=== PATIENT | female | born 1965 | race African-American/Black ===

== ENCOUNTER 2016-11-17 16:38 | Emergency (ER) | payer OTHER ==
[~2016-11-17] VITALS: Ht 162.6 cm; Wt 163.3 kg
--- NOTE | 2016-11-17 16:43 | PHYS DOC ---
Adult General HPI HPI Patient is a 51 year old female presenting to the emergency department via EMS for evaluation of dizziness nausea and not feeling well in the setting of being outside a 90 weather for 3 hours. She says that she was sitting down most the time but after standing up and walking she started getting the symptoms including profuse sweating. She said she felt slightly short of breath but no chest pain vomiting or abdominal pain. Patient says that she started drinking water after she felt the symptoms and EMS arrived to pick her up and she is feeling much better now. She says that she is almost back to baseline except for some generalized weakness. Review of Systems Review of Systems Constitutional: Denies fever or chills [] Eyes: Denies change in visual acuity, redness, or eye pain [] HENT: Denies nasal congestion or sore throat [] Respiratory: Denies cough. + shortness of breath [] Cardiovascular: No additional information not addressed in HPI [] GI: Denies abdominal pain. + nausea. No vomiting, bloody stools or diarrhea [] : Denies dysuria or hematuria [] Musculoskeletal: Denies back pain or joint pain [] Integument: Denies rash or skin lesions [] Neurologic: Denies headache, focal weakness. + dizziness sensory changes [] Current Medications Current Medications Current Medications Medications (Trade) Dose Ordered Sig/Gisele Start Time Stop Time Status Last Admin Dose Admin Ondansetron HCl (Zofran) 4 mg 1X ONCE 11/17/16 17:30 11/17/16 17:31 DC 11/17/16 17:18 4 MG Sodium Chloride 1,000 ml @ 1,000 mls/hr 1X ONCE 11/17/16 17:30 11/17/16 18:29 11/17/16 17:18 1,000 MLS/HR Allergies Allergies Allergies Coded Allergies Type Severity Reaction Last Updated Verified No Known Drug Allergies 11/17/16 No Physical Exam Physical Exam Constitutional: Well developed, well nourished, no acute distress, non-toxic appearance. [] HENT: Normocephalic, atraumatic, bilateral external ears normal, oropharynx moist, no oral exudates, nose normal. [] Eyes: PERRLA, EOMI, conjunctiva normal, no discharge. [] Neck: Normal range of motion, no tenderness, supple, no stridor. [] Cardiovascular:Heart rate regular rhythm, no murmur [] Lungs & Thorax: Bilateral breath sounds clear to auscultation [] Abdomen: Bowel sounds normal, soft, no tenderness, no masses, no pulsatile masses. [] Skin: Warm, dry, no erythema, no rash. [] Back: No tenderness, no CVA tenderness. [] Extremities: No tenderness, no cyanosis, no clubbing, ROM intact, no edema. [] Neurologic: Alert and oriented X 3, normal motor function, normal sensory function, no focal deficits noted. [] Current Patient Data Vital Signs Vital Signs Date Time Temp Pulse Resp B/P (MAP) Pulse Ox O2 Delivery O2 Flow Rate FiO2 11/17/16 16:47 98.7 98 16 144/97 (113) 99 Room Air 98.7 Lab Values Laboratory Tests Test 11/17/16 17:00 White Blood Count 6.6 x10^3/uL (4.0-11.0) Red Blood Count 3.61 x10^6/uL (3.50-5.40) Hemoglobin 11.8 g/dL (12.0-15.5) L Hematocrit 34.9 % (36.0-47.0) L Mean Corpuscular Volume 97 fL (79-100) Mean Corpuscular Hemoglobin 33 pg (25-35) Mean Corpuscular Hemoglobin Concent 34 g/dL (31-37) Red Cell Distribution Width 13.3 % (11.5-14.5) Platelet Count 238 x10^3/uL (140-400) Neutrophils (%) (Auto) 58 % (31-73) Lymphocytes (%) (Auto) 30 % (24-48) Monocytes (%) (Auto) 11 % (0-9) H Eosinophils (%) (Auto) 1 % (0-3) Basophils (%) (Auto) 1 % (0-3) Neutrophils # (Auto) 3.8 x10^3uL (1.8-7.7) Lymphocytes # (Auto) 2.0 x10^3/uL (1.0-4.8) Monocytes # (Auto) 0.7 x10^3/uL (0.0-1.1) Eosinophils # (Auto) 0.1 x10^3/uL (0.0-0.7) Basophils # (Auto) 0.0 x10^3/uL (0.0-0.2) Sodium Level 140 mmol/L (136-145) Potassium Level 3.6 mmol/L (3.5-5.1) Chloride Level 103 mmol/L (98-107) Carbon Dioxide Level 25 mmol/L (21-32) Anion Gap 12 (6-14) Blood Urea Nitrogen 13 mg/dL (7-20) Creatinine 1.2 mg/dL (0.6-1.0) H Estimated GFR (Cockcroft-Gault) 57.3 BUN/Creatinine Ratio 11 (6-20) Glucose Level 130 mg/dL (70-99) H Calcium Level 8.5 mg/dL (8.5-10.1) Magnesium Level 1.8 mg/dL (1.8-2.4) Total Bilirubin 0.5 mg/dL (0.2-1.0) Aspartate Amino Transferase (AST) 14 U/L (15-37) L Alanine Aminotransferase (ALT) 15 U/L (14-59) Alkaline Phosphatase 57 U/L (46-116) Creatine Kinase 87 U/L (26-192) Troponin I Quantitative < 0.017 ng/mL (0.000-0.055) Total Protein 8.0 g/dL (6.4-8.2) Albumin 3.3 g/dL (3.4-5.0) L Albumin/Globulin Ratio 0.7 (1.0-1.7) L Lipase 89 U/L (73-393) Laboratory Tests 11/17/16 17:00 Laboratory Tests 11/17/16 17:00 EKG EKG [] Radiology/Procedures Radiology/Procedures [] Course & Med Decision Making Course & Med Decision Making Nonspecific symptoms in the setting of heat exposure now she feels much better. We'll check labs give Zofran IV fluids and reassess. Patient given 1 L of normal saline and her labs are benign and thus far. Patient is requesting to leave as she feels well and is tolerating fluids by mouth with no difficulty and she says she is now back to her baseline. I told her all of her labs are not back yet and I would like her to stay until they are all the back. Refused stating she wants to go home now. Patient told that I could be missing a life-threatening diagnosis and she verbalizes understanding and said she would come back if she is feeling worse. Patient aware and agreeable with plan for discharge and verbalized understanding of the need for short-term follow-up in the strict ER return precautions discussed worsening pain fevers vomiting or other general concerns. Dragon Disclaimer Dragon Disclaimer This electronic medical record was generated, in whole or in part, using a voice recognition dictation system. Departure Departure Impression: Primary Impression: Dehydration Additional Impression: Heat exposure Disposition: HOME, SELF-CARE Condition: GOOD Referrals: NON,STAFF (PCP) Patient Instructions: Dehydration, Adult Problem Qualifiers SERENITY AJ DO Nov 17, 2016 16:43
[2016-11-17 17:09] LABS: BASO % 1 % (0-3); EOS % 1 % (0-3); HEMATOCRIT 34.9 % (36.0-47.0); HEMOGLOBIN 11.8 g/dL (12.0-15.5); LYMPH % 30 % (24-48); MEAN CORPUSCULAR HEMOGLOBIN 33 pg (25-35); MEAN CORPUSCULAR HGB CONC 34 g/dL (31-37); MEAN CORPUSCULAR VOLUME 97 fL (79-100); MONO % 11 % (0-9); NEUT % 58 % (31-73); PLATELET COUNT 238 x10^3/uL (140-400); RED BLOOD COUNT 3.61 x10^6/uL (3.50-5.40); RED CELL DISTRIBUTION WIDTH 13.3 % (11.5-14.5); WHITE BLOOD COUNT 6.6 x10^3/uL (4.0-11.0)
[2016-11-17] MEDS ORDERED: IV NORMAL SALINE 1000ML BAG 1,000 ML IV ONE (17:30)
[2016-11-17] MEDS ORDERED: ONDANSETRON PF 4 MG/2 ML VIAL. IV ONE (17:30)
[2016-11-17 17:33] LABS: CALCIUM 8.5 mg/dL (8.5-10.1); CREATININE 1.2 mg/dL (0.6-1.0); GFR 57.3; POTASSIUM 3.6 mmol/L (3.5-5.1)
[2016-11-17 17:39] LABS: ALBUMIN 3.3 g/dL (3.4-5.0); ALBUMIN/GLOBULIN RATIO 0.7 (1.0-1.7); MAGNESIUM 1.8 mg/dL (1.8-2.4); TOTAL BILIRUBIN 0.5 mg/dL (0.2-1.0)
--- NOTE | 2016-11-17 17:52 | EKG ---
[facility] [address] [place] [address] Test Date: 2016-11-17 Test Time: 17:31:11 Pat Name: ELSI GRIMES Department: Room: Gender: F [employer]: : 1965 Requested By: SERENITY AJ Order Number: [id number] Reading MD: Rochelle Wetzel Measurements Intervals Olivia Rate: 86 P: 43 VA: 180 QRS: -15 QRSD: 80 T: 13 QT: 366 QTc: 441 Interpretive Statements SINUS RHYTHM LEFTWARD AXIS QRS(T) CONTOUR ABNORMALITY CONSIDER ANTEROSEPTAL MYOCARDIAL DAMAGE Electronically Signed On 11-18-2016 20:09:06 CDT by Rochelle Wetzel
[2016-11-17 18:00] VITALS: BP 190/89
== END 2016-11-17 18:36 | disposition home or self-care (01) ==
LOC: ER 16:38
DX: E86.0 Dehydration (principal); T67.5XXA Heat exhaustion, unspecified, initial encounter; X30.XXXA Exposure to excessive natural heat, initial encounter; Y93.89 Activity, other specified; Y99.8 Other external cause status; Y92.89 Other specified places as the place of occurrence of the external cause
CPT/HCPCS: 36415; 80053; 82550; 83690; 83735; 84484; 85025; 93005; 96361; 96374; 99285; J2405; J7030